=== PATIENT | female | born 1980 | race Caucasian/White ===

== ENCOUNTER 2020-01-18 18:51 | Inpatient (IN) | payer MEDICAID ==
[~2020-01-18] VITALS: Ht 167.6 cm; Wt 136.0 kg
[2020-01-18] MEDS ORDERED: SODIUM CHLORIDE 0.45% 1,000 ML IV SCH (20:44)
[2020-01-18] MEDS ORDERED: MAGNESIUM SULF. PMX 20GM/500ML 500 ML IV ONE (20:49)
[2020-01-18 21:14] LABS: MICROSCOPIC INDICATED
[2020-01-18 21:21] LABS: ALANINE AMINOTRANSFERASE 40 U/L (12-78); ANION GAP 11 mmol/L (5-15); BILIRUBIN, DIRECT 0.5 mg/dL (0.1-0.2); CALCIUM 9.1 mg/dL (8.5-10.1); CHLORIDE 104 mmol/L (98-107); CREATININE 0.93 mg/dL (0.55-1.02)
[2020-01-18 21:23] LABS: ALKALINE PHOSPHATASE 247 U/L (45-117); BILIRUBIN,TOTAL 0.9 mg/dL (0.2-1.0); TOTAL PROTEIN 7.6 g/dL (6.4-8.2)
[2020-01-18 21:24] LABS: AMPHETAMINE SCREEN, URINE Positive (Negative); BARBITURATE SCREEN, URINE Negative (Negative); BENZODIAZEPINE SCREEN, URINE Negative (Negative); COCAINE SCREEN, URINE Negative (Negative); METHADONE SCREEN, URINE Negative (Negative); OPIATE SCREEN, URINE Negative (Negative); PROTEIN/CREATININE RATIO,URINE 374 (0-200); TOTAL PROTEIN,URINE RANDOM 83 mg/dL (0-12)
[2020-01-18] MEDS ORDERED: MAGNESIUM SULF. PMX 20GM/500ML 500 ML IV SCH (21:24)
[2020-01-18 21:26] LABS: CANNABINOID SCREEN, URINE Positive (Negative)
[2020-01-18 21:36] LABS: BASOPHILS # (AUTO) 0.06 x10^3/uL (0-0.1); BASOPHILS % (AUTO) 0 % (0-1); EOSINOPHILS # (AUTO) 0.02 x10^3/uL (0-0.4); EOSINOPHILS % (AUTO) 0 % (1-7); LYMPHOCYTES # (AUTO) 1.36 x10^3/uL (1-3.4); LYMPHOCYTES % (AUTO) 9 % (22-44); MD SCAN; MEAN CORPUSCULAR HEMOGLOBIN 31.3 pg (27.0-34.8); MEAN CORPUSCULAR HGB CONC 33.9 g/dL (32.4-35.8); MEAN PLATELET VOLUME 10.1 fL (7.4-10.4); MONOCYTES # (AUTO) 0.51 x10^3/uL (0.2-0.8); MONOCYTES % (AUTO) 4 % (2-9); NEUTROPHILS # (AUTO) 12.89 x10^3/uL (1.8-6.8); NEUTROPHILS % (AUTO) 87 % (42-75); PLATELET COUNT 179 x10^3/uL (130-400); RED BLOOD COUNT 4.23 x10^6/uL (3.82-5.3); RED CELL DISTRIBUTION WIDTH 12.9 % (9.6-15.2)
[2020-01-18] MEDS: D5%-LACTATED RINGERS 1,000 ML IV SCH (22:28)
[2020-01-19] MEDS: CEPHALEXIN 500 MG CAPSULE PO SCH ×5 (00:03→23:03)
[2020-01-19] MEDS ORDERED: ACETAMINOPHEN 325 MG TABLET ONE ×2 (04:04→18:45)
[2020-01-19] MEDS: ACETAMINOPHEN 325 MG TABLET PO PRN ×2 (04:05→18:46)
[2020-01-19] MEDS: D5%-LACTATED RINGERS 1,000 ML IV SCH (04:51)
[2020-01-19 05:11] LABS: BASOPHILS # (AUTO) 0.04 x10^3/uL (0-0.1); BASOPHILS % (AUTO) 0 % (0-1); EOSINOPHILS # (AUTO) 0.02 x10^3/uL (0-0.4); EOSINOPHILS % (AUTO) 0 % (1-7); LYMPHOCYTES # (AUTO) 1.46 x10^3/uL (1-3.4); LYMPHOCYTES % (AUTO) 11 % (22-44); MD NO; MEAN CORPUSCULAR HEMOGLOBIN 31.6 pg (27.0-34.8); MEAN CORPUSCULAR HGB CONC 34.5 g/dL (32.4-35.8); MEAN PLATELET VOLUME 10.2 fL (7.4-10.4); MONOCYTES # (AUTO) 0.29 x10^3/uL (0.2-0.8); MONOCYTES % (AUTO) 2 % (2-9); NEUTROPHILS # (AUTO) 11.52 x10^3/uL (1.8-6.8); NEUTROPHILS % (AUTO) 87 % (42-75); PLATELET COUNT 180 x10^3/uL (130-400); RED CELL DISTRIBUTION WIDTH 13.2 % (9.6-15.2)
[2020-01-19 05:17] LABS: ALBUMIN 1.8 g/dL (3.4-5.0); ANION GAP 8 mmol/L (5-15); CALCIUM 8.6 mg/dL (8.5-10.1); CHLORIDE 105 mmol/L (98-107)
[2020-01-19 05:20] LABS: ALANINE AMINOTRANSFERASE 36 U/L (12-78); ALKALINE PHOSPHATASE 225 U/L (45-117); BILIRUBIN,TOTAL 0.7 mg/dL (0.2-1.0); CREATININE 0.85 mg/dL (0.55-1.02); TOTAL PROTEIN 7.2 g/dL (6.4-8.2)
[2020-01-19] MEDS ORDERED: DOCUSATE 100 MG CAPSULE ONE ×2 (11:00→19:51)
[2020-01-19] MEDS ORDERED: PRENATAL VIT/IRON/FA 1 EACH TABLET ONE (11:01)
[2020-01-19] MEDS: NICOTINE 14MG/24 HR PATCH.TD24 TD SCH ×2 (11:05→20:18)
[2020-01-19] MEDS: PRENATAL VIT/IRON/FA 1 EACH TABLET PO SCH (11:10)
[2020-01-19] MEDS: DOCUSATE 100 MG CAPSULE PO SCH ×2 (11:11→20:16)
[2020-01-19 11:14] VITALS: BP 144/94
[2020-01-19] MEDS ORDERED: LABETALOL 5MG/ML, 20ML ONE (14:56)
[2020-01-19] MEDS ORDERED: hydrALAzine 20 MG/ML, 1ML IVPush ONE (15:00)
[2020-01-19] MEDS ORDERED: LABETALOL 5MG/ML, 20ML IVPush PRN ×3 (15:00)
[2020-01-19 15:15] VITALS: BP 143/87
[2020-01-19] MEDS: LACTATED RINGERS 1,000 ML IV PRN (15:34)
[2020-01-19 16:35] VITALS: BP 123/87
[2020-01-19] MEDS ORDERED: CALCIUM CARBONATE 500 MG TAB.CHEW ONE (16:53)
[2020-01-19] MEDS ORDERED: CALCIUM CARBONATE 500 MG TABLET PO PRN (17:00)
[2020-01-19] MEDS ORDERED: FAMOTIDINE 20 MG TABLET PO PRN (17:30)
[2020-01-19] MEDS ORDERED: BETAMETHASONE 6 MG/ML, 5ML IM ONE (18:42)
[2020-01-19] MEDS: BETAMETHASONE 6 MG/ML, 5ML IM SCH ×2 (18:48→21:00)
[2020-01-19 20:55] VITALS: BP 141/71
[2020-01-20] MEDS: LACTATED RINGERS 1,000 ML IV PRN ×3 (01:02→20:58)
[2020-01-20] MEDS: CEPHALEXIN 500 MG CAPSULE PO SCH ×4 (04:53→23:33)
[2020-01-20] MEDS ORDERED: ACETAMINOPHEN 325 MG TABLET ONE (04:54)
[2020-01-20 04:55] VITALS: BP 132/80
[2020-01-20] MEDS: ACETAMINOPHEN 325 MG TABLET PO PRN (04:55)
[2020-01-20 06:00] LABS: ALANINE AMINOTRANSFERASE 32 U/L (12-78); ALBUMIN 1.7 g/dL (3.4-5.0); ANION GAP 8 mmol/L (5-15); CALCIUM 8.3 mg/dL (8.5-10.1); CHLORIDE 103 mmol/L (98-107); CREATININE 0.87 mg/dL (0.55-1.02)
[2020-01-20 06:02] LABS: ALKALINE PHOSPHATASE 201 U/L (45-117); BILIRUBIN,TOTAL 0.4 mg/dL (0.2-1.0); TOTAL PROTEIN 6.6 g/dL (6.4-8.2)
[2020-01-20 06:06] LABS: MEAN CORPUSCULAR HEMOGLOBIN 30.8 pg (27.0-34.8); MEAN CORPUSCULAR HGB CONC 33.2 g/dL (32.4-35.8); MEAN PLATELET VOLUME 10.3 fL (7.4-10.4); PLATELET COUNT 231 x10^3/uL (130-400); RED BLOOD COUNT 3.74 x10^6/uL (3.82-5.3); RED CELL DISTRIBUTION WIDTH 12.7 % (9.6-15.2)
[2020-01-20 06:52] LABS: MD YES
[2020-01-20 06:56] LABS: BAND#(MANUAL) 0.63 x10^3/uL; BANDS%(MANUAL) 5 % (0-7); LYMPH#(MANUAL) 2.39 x10^3/uL (1-3.4); LYMPHS% (MANUAL) 19 % (22-44); METAMYELOCYTES# (MANUAL) 0.13 x10^3/uL (0-0); METAMYELOCYTES% (MANUAL) 1 % (0-1); MONOS#(MANUAL) 0.13 x10^3/uL (0.3-2.7); MONOS% (MANUAL) 1 % (2-9); SEG#(MANUAL) 9.32 x10^3/uL (1.8-6.8); SEGS% (MANUAL) 74 % (42-75)
[2020-01-20 06:57] LABS: <PLATELET ESTIMATE> ADEQUATE; <PLT MORPHOLOGY> NORMAL PLT MORPH; POLYCHROMASIA 1+
[2020-01-20 07:33] VITALS: BP 136/78
[2020-01-20] MEDS ORDERED: PRENATAL VIT/IRON/FA 1 EACH TABLET ONE (08:02)
[2020-01-20] MEDS ORDERED: DOCUSATE 100 MG CAPSULE ONE ×2 (08:03→20:31)
[2020-01-20] MEDS: DOCUSATE 100 MG CAPSULE PO SCH ×2 (08:04→20:58)
[2020-01-20] MEDS: PRENATAL VIT/IRON/FA 1 EACH TABLET PO SCH (08:04)
[2020-01-20] MEDS ORDERED: FAMOTIDINE 20 MG TABLET ONE (11:35)
[2020-01-20 14:08] LABS: CREATININE CLEARANCE,URINE 77.5 (70.0-140.0)
[2020-01-20] MEDS: NICOTINE 14MG/24 HR PATCH.TD24 TD SCH (21:02)
[2020-01-20 21:41] LABS: MICROSCOPIC INDICATED
[2020-01-20 23:35] VITALS: BP 149/87
[2020-01-21] MEDS: ACETAMINOPHEN 325 MG TABLET PO PRN (01:30)
[2020-01-21] MEDS: CEPHALEXIN 500 MG CAPSULE PO SCH ×4 (05:39→23:00)
[2020-01-21 06:04] LABS: ALANINE AMINOTRANSFERASE 40 U/L (12-78); ALBUMIN 1.7 g/dL (3.4-5.0); ANION GAP 8 mmol/L (5-15); CALCIUM 8.4 mg/dL (8.5-10.1); CHLORIDE 107 mmol/L (98-107); CREATININE 0.83 mg/dL (0.55-1.02)
[2020-01-21 06:05] LABS: MEAN CORPUSCULAR HGB CONC 33.5 g/dL (32.4-35.8); MEAN PLATELET VOLUME 9.7 fL (7.4-10.4); PLATELET COUNT 234 x10^3/uL (130-400); RED BLOOD COUNT 3.73 x10^6/uL (3.82-5.3); RED CELL DISTRIBUTION WIDTH 13.2 % (9.6-15.2)
[2020-01-21 06:07] LABS: ALKALINE PHOSPHATASE 181 U/L (45-117); BILIRUBIN,TOTAL 0.3 mg/dL (0.2-1.0); TOTAL PROTEIN 6.3 g/dL (6.4-8.2)
[2020-01-21 07:03] LABS: BASOPHILS # (AUTO) 0.03 x10^3/uL (0-0.1); BASOPHILS % (AUTO) 0 % (0-1); EOSINOPHILS # (AUTO) 0.14 x10^3/uL (0-0.4); EOSINOPHILS % (AUTO) 1 % (1-7); LYMPHOCYTES # (AUTO) 2.72 x10^3/uL (1-3.4); LYMPHOCYTES % (AUTO) 22 % (22-44); MD SCAN; MONOCYTES # (AUTO) 0.54 x10^3/uL (0.2-0.8); MONOCYTES % (AUTO) 4 % (2-9); NEUTROPHILS # (AUTO) 9.13 x10^3/uL (1.8-6.8); NEUTROPHILS % (AUTO) 73 % (42-75)
[2020-01-21] MEDS: D5%-LACTATED RINGERS 1,000 ML IV SCH ×2 (11:02→19:02)
[2020-01-21] MEDS ORDERED: LIDOCAINE 1%, 20ML ONE (11:46)
[2020-01-21 11:53] LABS: AMPHETAMINE SCREEN, URINE Negative (Negative); BARBITURATE SCREEN, URINE Negative (Negative); BENZODIAZEPINE SCREEN, URINE Negative (Negative); CANNABINOID SCREEN, URINE Negative (Negative); COCAINE SCREEN, URINE Negative (Negative); METHADONE SCREEN, URINE Negative (Negative); OPIATE SCREEN, URINE Negative (Negative)
[2020-01-21] MEDS: LACTATED RINGERS 1,000 ML IV PRN ×3 (12:18→21:16)
[2020-01-21] MEDS: DOCUSATE 100 MG CAPSULE PO SCH ×2 (12:21→21:00)
[2020-01-21] MEDS: PRENATAL VIT/IRON/FA 1 EACH TABLET PO SCH (12:21)
[2020-01-21] MEDS ORDERED: SODIUM CITRATE/CITRIC ACID 30 ML UDC PO ONE (15:00)
[2020-01-21] MEDS ORDERED: METOCLOPRAMIDE 5 MG/ML, 2ML IV ONE (15:00)
[2020-01-21] MEDS ORDERED: LACTATED RINGERS 1,000 ML IVBOLUS ONE (15:00)
[2020-01-21] MEDS ORDERED: SODIUM CITRATE/CITRIC ACID 30 ML UDC ONE (15:10)
[2020-01-21] MEDS ORDERED: METOCLOPRAMIDE 5 MG/ML, 2ML ONE ×3 (15:10→21:27)
[2020-01-21] MEDS ORDERED: NEWBORN KIT ONE (15:10)
[2020-01-21 15:36] LABS: ANION GAP 6 mmol/L (5-15); CALCIUM 9.5 mg/dL (8.5-10.1); CHLORIDE 108 mmol/L (98-107)
[2020-01-21 15:42] LABS: ALANINE AMINOTRANSFERASE 55 U/L (12-78); ALKALINE PHOSPHATASE 210 U/L (45-117); BILIRUBIN,TOTAL 0.4 mg/dL (0.2-1.0); CREATININE 0.81 mg/dL (0.55-1.02); TOTAL PROTEIN 7.1 g/dL (6.4-8.2)
[2020-01-21 16:16] LABS: BASOPHILS # (AUTO) 0.04 x10^3/uL (0-0.1); BASOPHILS % (AUTO) 0 % (0-1); EOSINOPHILS # (AUTO) 0.15 x10^3/uL (0-0.4); EOSINOPHILS % (AUTO) 1 % (1-7); LYMPHOCYTES % (AUTO) 21 % (22-44); MD NO; MEAN CORPUSCULAR HEMOGLOBIN 31.1 pg (27.0-34.8); MEAN CORPUSCULAR HGB CONC 33.5 g/dL (32.4-35.8); MEAN PLATELET VOLUME 10.3 fL (7.4-10.4); MONOCYTES # (AUTO) 0.59 x10^3/uL (0.2-0.8); MONOCYTES % (AUTO) 5 % (2-9); NEUTROPHILS # (AUTO) 9.38 x10^3/uL (1.8-6.8); NEUTROPHILS % (AUTO) 73 % (42-75); PLATELET COUNT 257 x10^3/uL (130-400); RED BLOOD COUNT 4.07 x10^6/uL (3.82-5.3); RED CELL DISTRIBUTION WIDTH 13.3 % (9.6-15.2)
[2020-01-21] MEDS ORDERED: MISOPROSTOL 200 MCG TABLET ONE (16:32)
[2020-01-21] MEDS ORDERED: OXYTOCIN 30U/ 0.9% NaCL 500ML 500 ML ONE (16:32)
[2020-01-21] MEDS ORDERED: EPHEDRINE 50 MG/ML, 1ML ONE ×2 (19:07→21:27)
[2020-01-21] MEDS ORDERED: KETOROLAC 30 MG/1 ML ONE (19:07)
[2020-01-21] MEDS ORDERED: OXYTOCIN 10 UNITS/ML, 1ML ONE (19:07)
[2020-01-21] MEDS ORDERED: ONDANSETRON 2MG/ML, 2ML ONE (19:07)
[2020-01-21] MEDS ORDERED: PHENYLEPHRINE 10 MG/ML ONE (19:07)
[2020-01-21] MEDS ORDERED: FENTANYL PF 100 MCG/2ML ONE (19:07)
[2020-01-21] MEDS ORDERED: CEFAZOLIN 1,000 MG ONE ×2 (19:07→21:27)
[2020-01-21] MEDS ORDERED: DEXAMETHASONE 4 MG/ML, 1ML ONE (19:07)
[2020-01-21] MEDS ORDERED: FENTANYL PF 100 MCG/2ML IV PRN (19:30)
[2020-01-21] MEDS ORDERED: METOCLOPRAMIDE 5 MG/ML, 2ML IV PRN (19:30)
[2020-01-21] MEDS ORDERED: OXYcodone 5 MG/5 ML ORAL.SOL UDC PO PRN (19:30)
[2020-01-21] MEDS ORDERED: MEPERIDINE/PF 25MG/0.5ML IVPush PRN (19:30)
[2020-01-21] MEDS ORDERED: LABETALOL 5MG/ML, 20ML IV PRN (19:30)
[2020-01-21] MEDS ORDERED: PROMETHAZINE 25 MG/ML, 1ML IV PRN (19:30)
[2020-01-21] MEDS ORDERED: HYDROmorphone 2 MG/ML, 1ML IVPush PRN (19:30)
[2020-01-21] MEDS ORDERED: EPHEDRINE 50 MG/ML, 1ML IVPush PRN (19:30)
[2020-01-21] MEDS ORDERED: MIDAZOLAM 1 MG/ML, 2ML IV PRN (19:30)
[2020-01-21] MEDS ORDERED: HYDROcodone/APAP 7.5-325MG/15ML UDC PO PRN (19:30)
[2020-01-21] MEDS ORDERED: ALBUTEROL SULFATE 2.5 MG/3 ML NPPB PRN (19:30)
[2020-01-21] MEDS ORDERED: METOPROLOL 1 MG/ML, 5ML IV PRN (19:30)
[2020-01-21] MEDS ORDERED: ONDANSETRON 2MG/ML, 2ML IVPush PRN (19:30)
[2020-01-21] MEDS ORDERED: hydrALAzine 20 MG/ML, 1ML IV PRN (19:30)
[2020-01-21] MEDS ORDERED: PRENATAL VIT/IRON/FA 1 EACH TABLET ONE (20:20)
[2020-01-21] MEDS ORDERED: DOCUSATE 100 MG CAPSULE ONE (20:20)
[2020-01-21] MEDS ORDERED: HYDROmorphone 2 MG/ML, 1ML ONE (22:46)
[2020-01-21] MEDS ORDERED: LACTATED RINGERS 1,000 ML IV SCH (22:54)
[2020-01-21] MEDS ORDERED: OXYTOCIN 30U/ 0.9% NaCL 500ML 500 ML IV SCH (22:54)
[2020-01-21] MEDS ORDERED: ACETAMINOPHEN 325 MG TABLET PO PRN (23:00)
[2020-01-21] MEDS ORDERED: ONDANSETRON 2MG/ML, 2ML IV PRN (23:00)
[2020-01-21] MEDS ORDERED: SIMETHICONE 80 MG CHEW TAB PO PRN (23:00)
[2020-01-21] MEDS ORDERED: DOCUSATE 100 MG CAPSULE PO PRN (23:00)
[2020-01-21] MEDS ORDERED: MISOPROSTOL 200 MCG TABLET PR PRN (23:00)
[2020-01-21] MEDS ORDERED: CARBOPROST TROMETHAMINE 250 MCG/ML, 1ML IM PRN (23:00)
[2020-01-21] MEDS: LACTATED RINGERS 1,000 ML IV SCH (23:10)
[2020-01-21] MEDS ORDERED: HYDROcodone/APAP 7.5-325MG/15ML UDC ONE (23:57)
[2020-01-22] VITALS (7 sets, daily range): BP systolic 144–175; BP diastolic 60–93
[2020-01-22] MEDS: NICOTINE 14MG/24 HR PATCH.TD24 TD SCH (00:09)
[2020-01-22] MEDS: D5%-LACTATED RINGERS 1,000 ML IV SCH (03:02)
[2020-01-22] MEDS: CEPHALEXIN 500 MG CAPSULE PO SCH ×4 (05:00→23:06)
[2020-01-22] MEDS ORDERED: OXYcodone/APAP 5/325MG TABLET ONE ×3 (05:10→20:43)
[2020-01-22] MEDS: OXYcodone/APAP 5/325MG TABLET PO PRN ×3 (05:11→20:53)
[2020-01-22 06:05] LABS: BASOPHILS # (AUTO) 0.06 x10^3/uL (0-0.1); BASOPHILS % (AUTO) 0 % (0-1); EOSINOPHILS # (AUTO) 0.11 x10^3/uL (0-0.4); EOSINOPHILS % (AUTO) 1 % (1-7); LYMPHOCYTES # (AUTO) 1.72 x10^3/uL (1-3.4); LYMPHOCYTES % (AUTO) 13 % (22-44); MD NO; MEAN CORPUSCULAR HEMOGLOBIN 31.4 pg (27.0-34.8); MEAN CORPUSCULAR HGB CONC 33.8 g/dL (32.4-35.8); MEAN PLATELET VOLUME 9.7 fL (7.4-10.4); MONOCYTES # (AUTO) 0.38 x10^3/uL (0.2-0.8); MONOCYTES % (AUTO) 3 % (2-9); NEUTROPHILS # (AUTO) 10.69 x10^3/uL (1.8-6.8); NEUTROPHILS % (AUTO) 82 % (42-75); PLATELET COUNT 225 x10^3/uL (130-400); RED BLOOD COUNT 3.59 x10^6/uL (3.82-5.3); RED CELL DISTRIBUTION WIDTH 13.3 % (9.6-15.2)
[2020-01-22 06:13] LABS: ALBUMIN 1.7 g/dL (3.4-5.0); ANION GAP 6 mmol/L (5-15); CALCIUM 8.7 mg/dL (8.5-10.1); CHLORIDE 105 mmol/L (98-107)
[2020-01-22 06:17] LABS: ALANINE AMINOTRANSFERASE 60 U/L (12-78); ALKALINE PHOSPHATASE 165 U/L (45-117); BILIRUBIN,TOTAL 0.4 mg/dL (0.2-1.0); CREATININE 0.77 mg/dL (0.55-1.02); TOTAL PROTEIN 6.1 g/dL (6.4-8.2)
[2020-01-22] MEDS ORDERED: PRENATAL VIT/IRON/FA 1 EACH TABLET ONE (07:43)
[2020-01-22] MEDS ORDERED: niFEDipine ER 60 MG TABLET.ER PO ONE (07:43)
[2020-01-22] MEDS ORDERED: DOCUSATE 100 MG CAPSULE ONE ×2 (07:43→20:43)
[2020-01-22] MEDS ORDERED: PRENATAL VIT/IRON/FA 1 EACH TABLET PO SCH (09:00)
[2020-01-22] MEDS: niFEDipine ER 60 MG TABLET.ER PO SCH (09:20)
[2020-01-22] MEDS: PRENATAL VIT/IRON/FA 1 EACH TABLET PO SCH (09:50)
[2020-01-22] MEDS: DOCUSATE 100 MG CAPSULE PO SCH ×2 (09:51→20:53)
[2020-01-22] MEDS: LACTATED RINGERS 1,000 ML IV SCH ×2 (11:13→18:54)
[2020-01-22] MEDS ORDERED: hydrALAzine 20 MG/ML, 1ML ONE (12:11)
[2020-01-22] MEDS ORDERED: hydrALAzine 20 MG/ML, 1ML IV ONE ×2 (12:30→13:30)
[2020-01-22] MEDS ORDERED: CALC300T5 PO (14:11)
[2020-01-22] MEDS ORDERED: PREN1TAB60 PO (14:11)
[2020-01-22] MEDS ORDERED: ACETAMINOPHEN 325 MG TABLET ONE (16:04)
[2020-01-22] MEDS: ACETAMINOPHEN 325 MG TABLET PO PRN (16:06)
[2020-01-22] MEDS ORDERED: SENNA/DOCUSATE TABLET ONE (20:44)
[2020-01-22 21:33] LABS: MICROSCOPIC NOT IND
[2020-01-22 22:12] LABS: AMPHETAMINE SCREEN, URINE Negative (Negative); BENZODIAZEPINE SCREEN, URINE Negative (Negative); OPIATE SCREEN, URINE Negative (Negative)
[2020-01-22 22:19] LABS: BARBITURATE SCREEN, URINE Negative (Negative); CANNABINOID SCREEN, URINE Negative (Negative); COCAINE SCREEN, URINE Negative (Negative); METHADONE SCREEN, URINE Negative (Negative)
[2020-01-22] MEDS: BISACODYL 5 MG EC TABLET PO PRN (23:05)
[2020-01-23] VITALS (10 sets, daily range): BP systolic 128–184; BP diastolic 80–99
[2020-01-23] MEDS ORDERED: OXYcodone/APAP 5/325MG TABLET ONE ×4 (00:54→14:47)
[2020-01-23] MEDS: OXYcodone/APAP 5/325MG TABLET PO PRN ×5 (00:56→20:39)
[2020-01-23] MEDS ORDERED: hydrALAzine 20 MG/ML, 1ML ONE (03:25)
[2020-01-23] MEDS ORDERED: hydrALAzine 20 MG/ML, 1ML IV ONE ×4 (03:30→07:00)
[2020-01-23] MEDS: CEPHALEXIN 500 MG CAPSULE PO SCH ×4 (04:53→23:08)
[2020-01-23] MEDS: NICOTINE 14MG/24 HR PATCH.TD24 TD SCH (04:53)
[2020-01-23] MEDS: LACTATED RINGERS 1,000 ML IV SCH (04:54)
[2020-01-23 05:51] LABS: MEAN CORPUSCULAR HEMOGLOBIN 31.5 pg (27.0-34.8); MEAN CORPUSCULAR HGB CONC 33.9 g/dL (32.4-35.8); MEAN PLATELET VOLUME 9.3 fL (7.4-10.4); PLATELET COUNT 285 x10^3/uL (130-400); RED BLOOD COUNT 3.76 x10^6/uL (3.82-5.3); RED CELL DISTRIBUTION WIDTH 13.4 % (9.6-15.2)
[2020-01-23 05:57] LABS: ALANINE AMINOTRANSFERASE 46 U/L (12-78); ANION GAP 3 mmol/L (5-15); CALCIUM 9.6 mg/dL (8.5-10.1); CHLORIDE 106 mmol/L (98-107)
[2020-01-23 06:02] LABS: ALKALINE PHOSPHATASE 169 U/L (45-117); BILIRUBIN,TOTAL 0.2 mg/dL (0.2-1.0); CREATININE 0.63 mg/dL (0.55-1.02); TOTAL PROTEIN 6.3 g/dL (6.4-8.2)
[2020-01-23 06:22] LABS: MD YES
[2020-01-23 06:23] LABS: LYMPH#(MANUAL) 1.75 x10^3/uL (1-3.4); LYMPHS% (MANUAL) 10 % (22-44); MONOS#(MANUAL) 0.35 x10^3/uL (0.3-2.7); MONOS% (MANUAL) 2 % (2-9); SEGS% (MANUAL) 88 % (42-75)
[2020-01-23 06:24] LABS: <PLATELET ESTIMATE> ADEQUATE; <PLT MORPHOLOGY> NORMAL PLT MORPH; POLYCHROMASIA 1+
[2020-01-23] MEDS ORDERED: niFEDipine ER 60 MG TABLET.ER PO ONE (07:20)
[2020-01-23] MEDS: niFEDipine ER 60 MG TABLET.ER PO SCH (07:22)
[2020-01-23] MEDS ORDERED: ACETAMINOPHEN 325 MG TABLET ONE ×2 (07:46→16:49)
[2020-01-23] MEDS: ACETAMINOPHEN 325 MG TABLET PO PRN ×2 (07:48→16:55)
[2020-01-23] MEDS ORDERED: DOCUSATE 100 MG CAPSULE ONE (09:06)
[2020-01-23] MEDS: PRENATAL VIT/IRON/FA 1 EACH TABLET PO SCH (09:12)
[2020-01-23] MEDS: DOCUSATE 100 MG CAPSULE PO SCH ×2 (09:13→20:38)
[2020-01-23] MEDS: BISACODYL 5 MG EC TABLET PO PRN (14:57)
[2020-01-23] MEDS: SODIUM CHLORIDE FLUSH 10ML SYR IVF SCH (15:00)
[2020-01-23] MEDS: OXYcodone IR 5MG TABLET PO PRN (22:41)
[2020-01-23] MEDS: BISACODYL 5 MG EC TABLET PO SCH (23:08)
[2020-01-24] VITALS (10 sets, daily range): BP systolic 108–173; BP diastolic 60–97
[2020-01-24] MEDS: OXYcodone/APAP 5/325MG TABLET PO PRN ×2 (01:05→21:41)
[2020-01-24] MEDS: ACETAMINOPHEN 325 MG TABLET PO PRN ×2 (01:05→10:55)
[2020-01-24] MEDS: CEPHALEXIN 500 MG CAPSULE PO SCH ×4 (05:26→22:58)
[2020-01-24] MEDS: OXYcodone IR 5MG TABLET PO PRN (05:26)
[2020-01-24] MEDS: PRENATAL VIT/IRON/FA 1 EACH TABLET PO SCH (07:59)
[2020-01-24] MEDS: DOCUSATE 100 MG CAPSULE PO SCH ×2 (07:59→19:48)
[2020-01-24] MEDS: niFEDipine ER 60 MG TABLET.ER PO SCH (07:59)
[2020-01-24] MEDS: SODIUM CHLORIDE FLUSH 10ML SYR IVF SCH ×2 (09:00→21:00)
[2020-01-24] MEDS: BISACODYL 5 MG EC TABLET PO SCH ×2 (10:55→21:00)
[2020-01-24] MEDS: NICOTINE 14MG/24 HR PATCH.TD24 TD SCH (10:56)
[2020-01-24] MEDS ORDERED: BISACODYL 10 MG SUPP PR PRN (19:30)
[2020-01-25 05:00] VITALS: BP 135/90
[2020-01-25] MEDS: CEPHALEXIN 500 MG CAPSULE PO SCH ×4 (05:12→22:50)
[2020-01-25 07:56] LABS: CALCIUM 9.1 mg/dL (8.5-10.1); CHLORIDE 105 mmol/L (98-107)
[2020-01-25 08:02] LABS: ALANINE AMINOTRANSFERASE 45 U/L (12-78); ALKALINE PHOSPHATASE 169 U/L (45-117); ANION GAP 6 mmol/L (5-15); BILIRUBIN,TOTAL 0.3 mg/dL (0.2-1.0); CREATININE 0.62 mg/dL (0.55-1.02); TOTAL PROTEIN 6.7 g/dL (6.4-8.2)
[2020-01-25 08:45] VITALS: BP 148/95
[2020-01-25] MEDS: SODIUM CHLORIDE FLUSH 10ML SYR IVF SCH ×2 (09:00→22:50)
[2020-01-25] MEDS: BISACODYL 5 MG EC TABLET PO SCH ×2 (09:00→21:00)
[2020-01-25] MEDS: niFEDipine ER 60 MG TABLET.ER PO SCH (09:01)
[2020-01-25] MEDS: DOCUSATE 100 MG CAPSULE PO SCH ×2 (09:01→22:50)
[2020-01-25] MEDS: PRENATAL VIT/IRON/FA 1 EACH TABLET PO SCH (09:01)
[2020-01-25] MEDS: NICOTINE 14MG/24 HR PATCH.TD24 TD SCH (09:03)
[2020-01-25] MEDS ORDERED: DIPH,PERTUSS(ACELL),TET VAC/PF NC IM-VACC ONE (10:00)
[2020-01-25 12:15] VITALS: BP 120/82
[2020-01-25] MEDS: ACETAMINOPHEN 325 MG TABLET PO PRN ×2 (12:31→18:56)
[2020-01-25 16:40] VITALS: BP 132/88
[2020-01-25 20:00] VITALS: BP 127/87
[2020-01-26] VITALS: BP 129/85
[2020-01-26 04:00] VITALS: BP 130/86
[2020-01-26] MEDS: CEPHALEXIN 500 MG CAPSULE PO SCH ×2 (05:13→12:48)
[2020-01-26 05:59] LABS: ALANINE AMINOTRANSFERASE 40 U/L (12-78); ALBUMIN 2.1 g/dL (3.4-5.0); ANION GAP 8 mmol/L (5-15); CHLORIDE 107 mmol/L (98-107)
[2020-01-26 06:02] LABS: ALKALINE PHOSPHATASE 170 U/L (45-117); BILIRUBIN,TOTAL 0.2 mg/dL (0.2-1.0); CREATININE 0.56 mg/dL (0.55-1.02); TOTAL PROTEIN 6.8 g/dL (6.4-8.2)
[2020-01-26] MEDS: NICOTINE 14MG/24 HR PATCH.TD24 TD SCH (08:52)
[2020-01-26] MEDS: DOCUSATE 100 MG CAPSULE PO SCH (08:52)
[2020-01-26] MEDS: niFEDipine ER 60 MG TABLET.ER PO SCH (08:52)
[2020-01-26] MEDS: PRENATAL VIT/IRON/FA 1 EACH TABLET PO SCH (08:52)
[2020-01-26] MEDS: BISACODYL 5 MG EC TABLET PO SCH (08:54)
[2020-01-26] MEDS: SODIUM CHLORIDE FLUSH 10ML SYR IVF SCH (08:54)
[2020-01-26 08:59] VITALS: BP 126/86
[2020-01-26] MEDS ORDERED: CEPH-368 PO (12:44)
[2020-01-26] MEDS ORDERED: DOCU-131 PO (12:44)
[2020-01-26] MEDS ORDERED: NIFE60TA2 PO (12:44)
[2020-01-26] MEDS: ACETAMINOPHEN 325 MG TABLET PO PRN (12:48)
== END 2020-01-26 12:55 | disposition home or self-care (01) | DRG 540 ==
LOC: LDIP 20:40 → 2NE 01-22 01:38 → 2NW 01-23 20:22
PROVIDERS: ADMIT Obstetrics & Gynecology Maternal & Fetal Medicine; ATTEND Obstetrics & Gynecology Maternal & Fetal Medicine
PROC: 10D00Z1 Extraction of Products of Conception, Low, Open Approach (ICD-10-PCS; principal; 2020-01-22)
DX: O14.94 Unspecified pre-eclampsia, complicating childbirth (principal); Z37.0 Single live birth; Z3A.33 33 weeks gestation of pregnancy; O99.334 Smoking (tobacco) complicating childbirth; O99.214 Obesity complicating childbirth; R56.9 Unspecified convulsions; J45.909 Unspecified asthma, uncomplicated; O32.1XX0 Maternal care for breech presentation, not applicable or unspecified; F15.10 Other stimulant abuse, uncomplicated; O36.5930 Maternal care for other known or suspected poor fetal growth, third trimester, not applicable or unspecified; O99.324 Drug use complicating childbirth; O26.62 Liver and biliary tract disorders in childbirth; K80.20 Calculus of gallbladder without cholecystitis without obstruction; F17.210 Nicotine dependence, cigarettes, uncomplicated
CPT/HCPCS: 36415; 76700; 80053; 80307; 81001; 81003; 82150; 82248; 82565; 82570; 82803; 83036; 83690; 83735; 84156; 84550; 85025; 86592; 86803; 86850; 86900; 87070; 87077; 87086; 87186; 87340; 87635; 87806; 88307; 90715; G0378; J0690; J0702; J1100; J1170; J1885; J2405; J3010; G0475; J0360; J2370; J2590; J2765; J3475; J7120; J7121